=== PATIENT | male | born 1955 | race Caucasian/White ===

== ENCOUNTER 2024-09-24 12:46 | Emergency (ER) | payer OTHER, MEDICARE | END 2024-09-24 15:05 | disposition home or self-care (01) | LOC: LB.ED 12:46 | DX: M71.22 Synovial cyst of popliteal space [Baker], left knee (principal); I10 Essential (primary) hypertension; M19.90 Unspecified osteoarthritis, unspecified site; E78.00 Pure hypercholesterolemia, unspecified; Z88.2 Allergy status to sulfonamides; Z91.041 Radiographic dye allergy status; Z88.8 Allergy status to other drugs, medicaments and biological substances; Z79.82 Long term (current) use of aspirin; Z79.899 Other long term (current) drug therapy | CPT/HCPCS: 73562-LT; 73700-LT; 99283; 99284 ==